=== PATIENT | female | born 1990 ===

== ENCOUNTER 2022-12-16 09:48 | Outpatient (CLI) | payer OTHER | END 2022-12-16 12:33 | disposition home or self-care (01) | LOC: PRENATAL 09:48 | PROVIDERS: ATTEND Obstetrics & Gynecology Maternal & Fetal Medicine | DX: O36.80X0 Pregnancy with inconclusive fetal viability, not applicable or unspecified (principal); Z36.9 Encounter for antenatal screening, unspecified; O99.341 Other mental disorders complicating pregnancy, first trimester; Z3A.11 11 weeks gestation of pregnancy ==

== ENCOUNTER 2023-03-24 17:53 | Inpatient (IN) | payer OTHER ==
[~2023-03-24] VITALS: Ht 170.2 cm; Wt 85.3 kg
[2023-03-24 18:35] LABS: PH,URINE 6.5 (5.0-8.0); URINE APPEARANCE Cloudy; URINE BILIRRUBIN Negative (NEGATIVE); URINE BLOOD Negative; URINE COLOR Yellow; URINE GLUCOSE Negative (NEGATIVE); URINE LEUKOCYTE Small; URINE NITRATE Negative; URINE PROTEIN Trace (NEGATIVE)
[2023-03-24 18:36] LABS: HEMATOCRIT 31.2 % (36.0-45.00); HEMOGLOBIN 10.2 g/dL (12.0-15.00); MEAN CELL VOLUME 84.9 fL (80.00-100.00); MEAN CORPUSCULAR HEMOGLOBIN 27.7 pg (27.00-32.0); MEAN CORPUSCULAR HGB CONC 32.7 g/dl (32.0-36.0); PLATELET COUNT 306 K/uL (150-450); RED BLOOD COUNT 3.68 M/uL (4.00-6.00); RED CELL DISTRIBUTION WIDTH 13.6 % (11.5-14.5)
[2023-03-24 18:39] LABS: URINE EPITHELIAL CELLS 17.7 uL (0.0-38.8); URINE RBC 82.2 uL (0.0-20.8); URINE WBC 165.4 uL (0.0-23.2)
[2023-03-24 18:57] LABS: URINE MUCUS SCANT
[2023-03-24 19:00] LABS: ALBUMIN 2.7 gm/dL (3.4-5.0); BILIRUBIN TOTAL 0.17 mg/dL (0.3-1.2); CALCIUM 8.4 mg/dL (8.5-10.1); CREATININE SERUM 0.68 mg/dL (0.55-1.02); GFR 101.59; GLOBULINA 3.2 G/DL (2.4-3.5); POTASSIUM 4.02 mEq/L (3.5-5.1); TOTAL PROTEIN 5.9 gm/dL (6.4-8.2)
[2023-03-24] MEDS ORDERED: FLONASE16 GM NS (20:59)
[2023-03-24] MEDS ORDERED: PRENATAL TABLE1 EAC1 PO (20:59)
[2023-03-27 16:35] LABS: ALBUMIN 2.5 gm/dL (3.4-5.0); BILIRUBIN TOTAL 0.16 mg/dL (0.3-1.2); CALCIUM 8.4 mg/dL (8.5-10.1); CREATININE SERUM 0.71 mg/dL (0.55-1.02); GFR 96.66; GLOBULINA 3.4 G/DL (2.4-3.5); POTASSIUM 4.35 mEq/L (3.5-5.1); TOTAL PROTEIN 5.9 gm/dL (6.4-8.2)
[2023-03-27 17:07] LABS: HEMATOCRIT 28.2 % (36.0-45.00); HEMOGLOBIN 9.3 g/dL (12.0-15.00); MEAN CORPUSCULAR HEMOGLOBIN 28.1 pg (27.00-32.0); MEAN CORPUSCULAR HGB CONC 33.1 g/dl (32.0-36.0); PLATELET COUNT 268 K/uL (150-450); RED BLOOD COUNT 3.32 M/uL (4.00-6.00); RED CELL DISTRIBUTION WIDTH 14.1 % (11.5-14.5)
[2023-03-28] MEDS ORDERED: OSEL75CA PO (09:04)
[2023-03-28] MEDS ORDERED: AZITHROMYCIN250 MG PO (09:05)
[2023-03-28] MEDS ORDERED: XOPENEX CO1.25 MG/0. IH (09:07)
[2023-03-28] MEDS ORDERED: BUDESONIDE0.5 MG/2 M IH (09:15)
[2023-03-28] MEDS ORDERED: MAXFE CAPLET1 EAC1 PO (09:29)
== END 2023-03-28 11:26 | disposition home or self-care (01) | DRG 832 ==
LOC: OBS/DEL 17:53 → LDR 20:10
PROVIDERS: Specialist; ADMIT Student in an Organized Health Care Education/Training Program; ATTEND Student in an Organized Health Care Education/Training Program
PROC: 4A1HXCZ Monitoring of Products of Conception, Cardiac Rate, External Approach (ICD-10-PCS; principal; 2023-03-24)
PROC: BY4FZZZ Ultrasonography of Third Trimester, Single Fetus (ICD-10-PCS; 2023-03-28)
DX: O26.842 Uterine size-date discrepancy, second trimester (principal); O98.912 Unspecified maternal infectious and parasitic disease complicating pregnancy, second trimester; J10.1 Influenza due to other identified influenza virus with other respiratory manifestations; Z3A.26 26 weeks gestation of pregnancy; Z20.822 Contact with and (suspected) exposure to COVID-19

== ENCOUNTER 2023-04-21 21:16 | Outpatient (CLI) | payer OTHER ==
[~2023-04-21 21:16] MED LIST: AZITHROMYCIN250 MG PO; BUDESONIDE0.5 MG/2 M IH; FLONASE16 GM NS; MAXFE CAPLET1 EAC1 PO; OSEL75CA PO; PRENATAL TABLE1 EAC1 PO; XOPENEX CO1.25 MG/0. IH
== END 2023-04-21 22:10 | disposition home or self-care (01) ==
LOC: NST 21:16
PROVIDERS: ATTEND Student in an Organized Health Care Education/Training Program
DX: O26.893 Other specified pregnancy related conditions, third trimester (principal); R51.9 Headache, unspecified; R04.0 Epistaxis; Z3A.29 29 weeks gestation of pregnancy

== ENCOUNTER 2023-05-11 08:51 | Outpatient (CLI) | payer OTHER | END 2023-05-11 08:52 | disposition home or self-care (01) | LOC: PRENATAL 08:51 | PROVIDERS: ATTEND Obstetrics & Gynecology Maternal & Fetal Medicine | DX: O26.849 Uterine size-date discrepancy, unspecified trimester (principal); O36.8199 Decreased fetal movements, unspecified trimester, other fetus; O99.343 Other mental disorders complicating pregnancy, third trimester; Z3A.32 32 weeks gestation of pregnancy ==

== ENCOUNTER 2023-06-03 16:02 | Inpatient (IN) | payer OTHER ==
[~2023-06-03] VITALS: Ht 170.2 cm; Wt 92.5 kg
[2023-06-03] MEDS ORDERED: HEMOCYTE PLUS1 EACH PO (17:27)
[2023-06-03] MEDS ORDERED: PRENATAL TABLE1 EAC1 PO (17:27)
[2023-06-03] MEDS ORDERED: SYMBICORT 16010.2 GM IH (17:32)
[2023-06-03 17:43] LABS: URINE APPEARANCE Clear; URINE BILIRRUBIN Negative (NEGATIVE); URINE BLOOD Negative; URINE COLOR Dark Yellow; URINE GLUCOSE Negative (NEGATIVE); URINE LEUKOCYTE Trace; URINE NITRATE Negative; URINE PROTEIN Trace (NEGATIVE)
[2023-06-03 17:45] LABS: INR < 0.93; PARTIAL THROMBOPLASTIN TIME 24.3 SECONDS (22.0-34.0); PROTHROMBIN TIME 9.8 SECONDS (9.0-11.5)
[2023-06-03 17:47] LABS: URINE BACTERIA 2359.8 uL (0.0-1933); URINE EPITHELIAL CELLS 20.2 uL (0.0-38.8); URINE RBC 8.6 uL (0.0-20.8)
[2023-06-03 17:51] LABS: ALBUMIN 2.7 gm/dL (3.4-5.0); BILIRUBIN TOTAL 0.19 mg/dL (0.3-1.2); CALCIUM 8.7 mg/dL (8.5-10.1); CREATININE SERUM 0.85 mg/dL (0.55-1.02); GFR 78.01; GLOBULINA 3.4 G/DL (2.4-3.5); POTASSIUM 3.87 mEq/L (3.5-5.1); TOTAL PROTEIN 6.1 gm/dL (6.4-8.2)
[2023-06-03 18:10] LABS: HEMATOCRIT 29.7 % (36.0-45.00); HEMOGLOBIN 9.7 g/dL (12.0-15.00); MEAN CELL VOLUME 79.9 fL (80.00-100.00); MEAN CORPUSCULAR HEMOGLOBIN 26.2 pg (27.00-32.0); MEAN CORPUSCULAR HGB CONC 32.8 g/dl (32.0-36.0); PLATELET COUNT 294 K/uL (150-450); RED BLOOD COUNT 3.72 M/uL (4.00-6.00); RED CELL DISTRIBUTION WIDTH 15.9 % (11.5-14.5)
== END 2023-06-04 16:04 | disposition home or self-care (01) | DRG 833 ==
LOC: LDR 16:02
PROVIDERS: ADMIT Obstetrics & Gynecology; ATTEND Obstetrics & Gynecology
PROC: 4A1HXCZ Monitoring of Products of Conception, Cardiac Rate, External Approach (ICD-10-PCS; principal; 2023-06-03)
DX: O46.8X3 Other antepartum hemorrhage, third trimester (principal); Z3A.35 35 weeks gestation of pregnancy; Z20.822 Contact with and (suspected) exposure to COVID-19

== ENCOUNTER 2023-06-22 17:37 | Inpatient (IN) | payer OTHER ==
[~2023-06-22] VITALS: Ht 170.2 cm; Wt 94.8 kg
[~2023-06-22 17:37] MED LIST changes: +HEMOCYTE PLUS1 EACH PO; +SYMBICORT 16010.2 GM IH
[2023-06-22 18:37] LABS: HEMOGLOBIN 10.6 g/dL (12.0-15.00); MEAN CELL VOLUME 79.7 fL (80.00-100.00); MEAN CORPUSCULAR HEMOGLOBIN 26.3 pg (27.00-32.0); MEAN CORPUSCULAR HGB CONC 33.1 g/dl (32.0-36.0); PH,URINE 6.5 (5.0-8.0); PLATELET COUNT 302 K/uL (150-450); RED BLOOD COUNT 4.02 M/uL (4.00-6.00); RED CELL DISTRIBUTION WIDTH 16.5 % (11.5-14.5); URINE APPEARANCE Clear; URINE BILIRRUBIN Negative (NEGATIVE); URINE BLOOD Negative; URINE COLOR Yellow; URINE GLUCOSE Negative (NEGATIVE); URINE LEUKOCYTE Small; URINE NITRATE Negative; URINE PROTEIN Trace (NEGATIVE)
[2023-06-22 18:38] LABS: URINE BACTERIA 3895.8 uL (0.0-1933); URINE EPITHELIAL CELLS 30.4 uL (0.0-38.8); URINE RBC 21.5 uL (0.0-20.8); URINE WBC 39.2 uL (0.0-23.2)
[2023-06-22 18:58] LABS: INR < 0.93; PARTIAL THROMBOPLASTIN TIME 24.2 SECONDS (22.0-34.0); PROTHROMBIN TIME 9.5 SECONDS (9.0-11.5)
[2023-06-22 19:01] LABS: ALBUMIN 2.6 gm/dL (3.4-5.0); BILIRUBIN TOTAL 0.29 mg/dL (0.3-1.2); CALCIUM 8.3 mg/dL (8.5-10.1); CREATININE SERUM 0.84 mg/dL (0.55-1.02); GFR 79.08; GLOBULINA 3.6 G/DL (2.4-3.5); POTASSIUM 3.97 mEq/L (3.5-5.1); TOTAL PROTEIN 6.2 gm/dL (6.4-8.2)
[2023-06-25] MEDS ORDERED: NAPR500T14 PO (11:54)
== END 2023-06-25 14:25 | disposition home or self-care (01) | DRG 807 ==
LOC: LDR 17:37 → OB/GYN 06-23 23:15
PROVIDERS: ADMIT Obstetrics & Gynecology; ATTEND Obstetrics & Gynecology
PROC: 4A1HXCZ Monitoring of Products of Conception, Cardiac Rate, External Approach (ICD-10-PCS; 2023-06-22)
PROC: 10E0XZZ Delivery of Products of Conception, External Approach (ICD-10-PCS; principal; 2023-06-23)
PROC: 0KQM0ZZ Repair Perineum Muscle, Open Approach (ICD-10-PCS; 2023-06-23)
DX: O70.1 Second degree perineal laceration during delivery (principal); Z37.0 Single live birth; O36.8130 Decreased fetal movements, third trimester, not applicable or unspecified; Z3A.38 38 weeks gestation of pregnancy; Z20.822 Contact with and (suspected) exposure to COVID-19